=== PATIENT | female | born 1965 | race Caucasian/White ===

== ENCOUNTER 2024-10-12 16:28 | Emergency (ER) | payer OTHER, SELFPAY ==
--- OUTSIDE RECORDS SUMMARY | 2024-09-28 15:30 | XMS_ITS | Encounter Summary ---
Author Organization [facility] Address [address] [place] [address] Care Team Providers Care Foster Care Case Manager Name Role Phone Adonis Salvador Primary Care Provider [phone] Reason for Visit * Rehabilitation - Outpatient (Routine) - Authorized Specialty Diagnoses / Procedures Referred By Contac t Referred To Contact Physical Therapy Diagnoses Closed fracture of distal end of right fibula with routine healing, unspecified fracture morphology, subsequent encounter Procedures [place] OFFICE/OUTPATIENT NEW HIGH MDM 60 MINUTES Kareem Mcduffie PA Phone: tel: fax: Shanice Howell, PT [address] [facility] [address] [place] [address] Phone: tel: fax: Referral ID Status Reason Start Date Expiration Date Visits Requested Visits Authorized [id number] Authorized Consult and Treat 08/19/2024 03/09/2025 99 99 Encounter Details Date Type Department Care Team (Late st Contact Info) Description 09/28/2024 3:30 PM EDT Treatment [facility] [place] [facility] [address] [facility] [address] [place] [phone] Patricia Arreola, PT [address] [place] [address] Closed fracture of distal end of right fibula with routine healing, unspecified fracture morphology, subsequent encounter (Primary Dx) Social History Tobacco Use Types Packs/Day Years Used Date Smoking Tobacco: Never Smokeless Tobacco: Never Alcohol Use Standard Drinks/Week Comments Yes 0 (1 standard drink = 0.6 oz pur e alcohol) Comments Unknown Sex and Gender Information Value Date Recorded Sex Assigned at Not on file Legal Sex Female 7:39 PM EDT Gender Identity Not on file Sexual Orientation Not on file documented as of this encounter Progress Notes * Patricia Arreola, PT - 09/28/2024 3:30 PM EDT Images from the original note were not included. Physical Therapy Physical Therapy Treatment Visit Patient Name: Wendy Hicks Today's Date: 09/28/24 Diagnosis: Closed fracture of distal end of right fibula with routine healing DOI: 06/26/24, 13 weeks post op on 09/25/24 Treatment has included NWB, then WB in boot. Boot removed 08/19/24. Visit number: 13, med nec, 10% co-insurance Supervised time: 40 min Total time: 55 min Precautions: progress as tolerated Subjective: Pain: lower pain levels right lateral ankle for 1 week. On feet a lot at work today, fatigued. Strength is slowly improving. Cannot do single heel raise yet, but strength is improving. Unable to descend steps with reciprocalpattern. Overall progress: now painfree full ROM, Strength is improving. Objective: Palpation: no longer sore over right ATF ligament or fracture site. Atrophy right calf. AROM: updated 09/15/24 DF: 10 deg PF: 45 deg Inv: 33 deg Ev: 25 deg Strength 4/5 ant tib, post tib. 3.5/5 right peroneals, gastroc-soleus Gait: decreased toe off right. Single leg stance: 3 sec Treatment: Therapeutic Exercise: Nestor/flex per grid x 30' supervised, no bike today. Manual therapy: fibula, soft tissue mobes x 10 min. No pain with end-range eversion now Modalities: Estim/ice to Right ankle post RX x15' Assessment: Pt has received 13 treatments of PT from 08/23/24 to today. PT has consisted of therapeutic exercises, manual therapy and ice/e-stim. Pain level is steadily decreasing as strength improves. Decreased pain after exercises today. Improving agility without pain. Goals updated 09/15/24 No pain with isometric/resisted exercises right ankle. Goal not met Walk with equal step time and length, no increase in pain. Goal not met 4/5 or better strength right LE . Goal not met. Improve AROM right ankle to equal left. Goal met Ascend/descend steps with reciprocal pattern without increase in pain. Goal not met. 0-2/10 pain with pt able to resume PLOF. Goal not met. Plan: PT 2x/week through September 2024. documented in this encounter Plan of Treatment Upcoming Encounters Date Type Department Care Team (Late st Contact Info) Description 10/15/2024 5:15 PM EDT Ancillary Procedure [facility] [address] [place] [phone] 10/22/2024 8:15 AM EDT Office Visit [facility] [address] [place] [address] Kareem Mcduffie PA [address] [place] [address] documented as of this encounter Visit Diagnoses Diagnosis Closed fracture of distal end of right fibula with routine healing, unspecified fracture morphology, subsequent encounter- Primary documented in this encounter Care Teams Foster Care Case Manager Relationship Specialty Start Date End Date Adonis Salvador DO [address] [address] PCP - General Family Medicine 07/16/22 documented as of this encounter
--- OUTSIDE RECORDS SUMMARY | 2024-09-30 16:00 | XMS_ITS | Encounter Summary ---
Author Organization [facility] Address [address] [place] [address] Care Team Providers Care Hire Car Driver Name Role Phone Adonis Salvador Primary Care Provider [phone] Reason for Visit * Rehabilitation - Outpatient (Routine) - Authorized Specialty Diagnoses / Procedures Referred By Contac t Referred To Contact Physical Therapy Diagnoses Closed fracture of distal end of right fibula with routine healing, unspecified fracture morphology, subsequent encounter Procedures [place] OFFICE/OUTPATIENT NEW HIGH MDM 60 MINUTES Kareem Mcduffie PA Phone: tel: fax: Shanice Howell, PT [address] [place] [address] [place] [address] Phone: tel: fax: Referral ID Status Reason Start Date Expiration Date Visits Requested Visits Authorized [id number] Authorized Consult and Treat 08/19/2024 03/09/2025 99 99 Encounter Details Date Type Department Care Team (Late st Contact Info) Description 09/30/2024 4:00 PM EDT Treatment [facility] [place] [facility] [address] [place] [address] [place] [address] Jolene Delcid PTA Closed fracture of distal end of right [...] as of this encounter Progress Notes * Jolene Delcid, EPIC DIRECTOR - 09/30/2024 4:00 PM EDT Physical Therapy Physical Therapy Treatment Visit Patient Name: Wendy Hicks Today's Date: 09/28/24 Diagnosis: Closed fracture of distal end of right fibula with routine healing DOI: 06/26/24, 13 weeks post op on 09/25/24 Treatment has included NWB, then WB in boot. Boot removed 08/19/24. Visit number: 14, med nec, 10% co-insurance Supervised time: 40 min Total time: 68 min Precautions: progress as tolerated Subjective: Pain: minimal soreness since coming from work, level not rated. Overall progress: Mild soreness from exercise progressions last session. Patient pleased with overall progress. Objective: Palpation: no longer sore over right ATF ligament or fracture site. Atrophy right calf. AROM: updated 09/15/24 DF: 10 deg PF: 45 deg Inv: 33 deg Ev: 25 deg Strength 4/5 ant tib, post tib. 3.5/5 right peroneals, gastroc-soleus Gait: decreased toe off right. Single leg stance: 3 sec Treatment: Therapeutic Exercise: Nestor/flex per grid x 30' supervised, x 13' unsupervised Manual therapy: fibula, soft tissue mobes x 10 min. Modalities: Estim/ice to Right ankle post RX x15' Assessment: No pain with resistance ankle ther ex. Most challenged with single leg stance activity which required support from contralateral LE or hands on bar. Goals updated 09/15/24 No pain with isometric/resisted exercises right ankle. Goal met Walk with equal step time and length, no increase in pain. Goal not met 4/5 or better strength right LE . Goal not met. Improve AROM right ankle to equal left. Goal met Ascend/descend steps with reciprocal pattern without increase in pain. Goal not met. 0-2/10 pain with pt able to resume PLOF. Goal not met. Plan: PT 2x/week through September 2024. Cosigned by Karen Monzon, PT at 10/05/2024 1:57 PM EDT documented in this encounter Plan of Treatment Upcoming Encounters Date Type Department Care Team (Late st Contact Info) Description 10/15/2024 5:15 PM EDT Ancillary Procedure [facility] [address] [place] [address] 10/22/2024 8:15 AM EDT Office Visit [facility] [address] [place] [address] Kareem Mcduffie PA [address] [place] [address] documented as of this encounter Visit Diagnoses Diagnosis Closed fracture of distal end of right fibula with routine healing, unspecified fracture morphology, subsequent encounter- Primary documented in this encounter Care Teams Hire Car Driver Relationship Specialty Start Date End Date Adonis Salvador DO [address] [facility] [place] [address] PCP - General Family Medicine 07/16/22 documented as of this encounter
--- OUTSIDE RECORDS SUMMARY | 2024-10-07 14:45 | XMS_ITS | Encounter Summary ---
Author Organization [facility] Address [address] [place] [address] Care Team Providers Care Personal Assistant Name Role Phone Adonis Salvador Primary Care Provider [phone] Reason for Referral * Imaging (Routine) - Authorized Specialty Diagnoses / Procedures Referred By Contac t Referred To Contact Radiology Diagnoses Acute right ankle pain Closed fracture of distal end of right fibula with routine healing, unspecified fracture morphology, subsequent encounter Procedures MR ankle right wo IV contrast Kareem Mcduffie PA [address] [place] [address] Phone: tel: fax: [facility] [address] [place] [address] Phone: tel: fax: Referral ID Status Reason Start Date Expiration Date V isits Requested Visits Authorized [id number] Authorized 10/11/2024 04/09/2025 1 1 Reason for Visit * Reason Comments Fracture Encounter Details Date Type Department Care Team (Late st Contact Info) Description 10/07/2024 2:45 PM EDT Office Visit [facility] [address] [place] [phone] Kareem Mcduffie PA [address] [place] [address] Acute right ankle pain (Primary Dx); Closed fracture of distal end of right fibula with routine healing, unspecified fracture morphology, subsequent encounter Social History Tobacco Use Types Packs/Day Years [...] as of this encounter Progress Notes * GINGER Edmond - 10/07/2024 2:45 PM EDT Images from the original note were not included. Orthopedic Office note: NAME: Wendy Hicks : 1965 (EST PT) - RECHECK (R) ANKLE FX 06/26/24 (3 MONTHS, 2 WKS, 5 DAYS) ; S/P MDP 09/16/24 XRAY 08/19/24 IN EPIC XRAY 07/21/24 IN EPIC XRAY 06/28/24 IN EPIC NO MRI MDP 09/16/24 S/P PT @[facility] [place] CONTINUES HEP. S/P MDP - SOME RELIEF WITH SWELLING. ADMITS CONSTANT DISCOMFORT TO TOES WITH AMBULATION / WB. GOOD ROM. STRENGTH IMPROVING. SOME SWELLING TO ANKLE. DENIES STIFFNESS. DENIES WAKING HS. OCCASIONAL SENSATION OF NEEDING TO CRACK 1ST TOE WITH AMBULATION. DENIES N/T. ADMITS ELEVATION. DENIES ICING / HEATING. NO PAIN MEDS / TOPICALS. MICHAEL: 06/26/24 - FELL WHEN WALKING / TWISTED ANKLE Physical Exam General Appearance: Normal. Respiratory: No acute distress. Musculoskeletal: Gait: Patient walks well at the bedside without evidence of a limp. Right ankle: Mild swelling on the lateral aspect, no evidence of bruising, pain localized on deep palpation over the ATFL, compartments are soft, no pain with syndesmotic compression of the tib-fib, proximal fibula, knee, full ankle dorsiflexion and plantar flexion, ankle inversion and eversion without difficulty, posterior tibial pulse 2+ with capillary refill less than 2 seconds, no pain on palpation of the medial ankle, calcaneus, or midfoot, able to single leg heel rise with mild soreness, able to double leg heel rise without pain or discomfort. Skin: Warm and dry, no rash. Neurological: Normal. Foot/Ankle Musculoskeletal Exam No orders of the defined types were placed in this encounter. Procedures Results ICD-10-CM 1. Acute right ankle pain M25.571 2. Closed fracture of distal end of right fibula with routine healing, unspecified fracture morphology, subsequent encounter S82.831D 3. Acute traumatic internal derangement of right ankle, initial encounter S93.04XA Assessment & Plan Right distal fibula fracture Approximately 3 months post-injury, there is persistent discomfort with certain activities. No painis reported while walking, but pain occurs in the ball area of the foot with overuse. Gait mechanics and continued tenderness were discussed. The potential for a full thickness tear cannot be ruled out. Ankle anterior drawer and talar tilt tests are negative, showing no significant pain or laxity compared to the contralateral ankle. She can walk most of the day without ankle pain but experiences occasional discomfort depending on certain movements and activities. Impingement is possible, considering prior referral to physical therapy and compliance with home exercises, which appears adequate. Diagnostic plan: An MRI will be conducted for further evaluation due to lack of progress with conservative measures and persistent symptoms. Referral to a foot and ankle specialist will be consideredbased on MRI results. Follow-up: Next scheduled visit to be determined based on MRI results. Questions answered in laymen terms at the bedside. The diagnosis, home exercise plan and any ongoing restrictions/ recommendations reviewed. If unable to be reached in office, I recommend evaluation at nearest Emergency Room if any symptoms worsened or new symptoms develop for requiring urgent evaluation. Visit was preformed using [employer] Co-airplane pilot helper speech recognition. documented in this encounter Plan of Treatment Upcoming Encounters Date Type Department Care Team (Late st Contact Info) Description 10/15/2024 5:15 PM EDT Ancillary Procedure [facility] [place] [facility] [address] [place] [address] 10/22/2024 8:15 AM EDT Office Visit [facility] [address] Kareem Mcduffie PA [address] [place] [address] Scheduled Orders Name Type Priority Associated Diagnoses Orde r Schedule MR ankle right wo IV contrast Imaging Routine Acute right ankle pain Closed fracture of distal end of right fibula with routine healing, unspecified fracture morphology, subsequent encounter Expected: 10/07/2024 (Approximate), Expires: 10/07/2025 documented as of this encounter Visit Diagnoses Diagnosis Acute right ankle pain- Primary Closed fracture of distal end of right fibula with routine healing, unspecified fracture morphology, subsequent encounter documented in this encounter Care Teams Personal Assistant Relationship Specialty Start Date End Date Adonis Salvador DO [address] [address] PCP - General Family Medicine 07/16/22 documented as of this encounter
--- OUTSIDE RECORDS SUMMARY | 2024-10-12 15:30 | XMS_ITS | Encounter Summary ---
Author Organization [facility] Address [address] [place] [address] Care Team Providers Care Strainer Mill Operator Name Role Phone Adonis Salvador Primary Care Provider [phone] Encounter Details Date Type Department Care Team (Late st Contact Info) Description 10/12/2024 3:30 PM EDT [facility] [address] [facility] [address] [place] [address] Brandie Suarez, PORCELAIN ENAMELING SUPERVISOR [address] [place] [address] Right lower quadrant abdominal pain (Primary Dx); Acute right flank pain Social History Tobacco Use Types Packs/Day Years [...] on file documented as of this encounter Last Filed Vital Signs Vital Sign Reading Time Taken Comments Blood Pressure 132/92 10/12/2024 3:33 PM EDT Pulse 80 10/12/2024 3:33 PM EDT Temperature 36.7 C (98 F) 10/12/2024 3:33 PM EDT Respiratory Rate 18 10/12/2024 3:33 PM EDT Oxygen Saturation 99% 10/12/2024 3:33 PM EDT Inhaled Oxygen Concentration - - Weight 87.5 kg (193 lb) 10/12/2024 3:33 PM EDT Height - - Body Mass Index 34.19 08/24/2019 12:00 PM EDT documented in this encounter Plan of Treatment Upcoming Encounters Date Type Department Care Team (Late st Contact Info) Description 10/15/2024 5:15 PM EDT Ancillary Procedure [facility] [address] [place] [address] 10/22/2024 8:15 AM EDT Office Visit [facility] [address] [place] [address] Kareem Mcduffie PA [address] [place] [address] documented as of this encounter Procedures Procedure Name Priority Date/Time Associated Diagnosis Comments URINALYSIS ANALYZER TEST Routine 10/12/2024 4:11 PM EDT Right lower quadrant abdominal pain documented in this encounter Results * (ABNORMAL) URINALYSIS ANALYZER TEST (10/12/2024 4:11 PM EDT) LEUKOCYTES negative Negative NITRITES negative Negative UROBILINOGEN negative 0.2 - 1.0 PROTEIN negative Negative PH 6.0 5.0 - 6.0 BLOOD +- Negative SPECIFIC GRAVITY 1.005 1.001 - 1.035 KETONES negative Negative BILIRUBIN negative Negative GLUCOSE negative Negative Urine 10/12/2024 4:1 1 PM EDT Brandie Suarez PORCELAIN ENAMELING SUPERVISOR POINT OF CARE TEST ENTER/CHARLES T ORDERABLES Final Result documented in this encounter Visit Diagnoses Diagnosis Right lower quadrant abdominal pain- Primary Acute right flank pain documented in this encounter Care Teams Strainer Mill Operator Relationship Specialty Start Date End Date Adonis Salvador DO [address] [place] [address] PCP - General Family Medicine 07/16/22 documented as of this encounter
[2024-10-12 16:35] VITALS: BP 131/87; PULSE 72; TEMP 36.7; O2SAT 99; BMI 34.4
--- OUTSIDE RECORDS SUMMARY | 2024-10-12 16:38 | XMS_ITS | Encounter Summary ---
Author Organization [facility] Address [address] [place] [address] Care Team Providers Care Brick And Block Mason Name Role Phone Adonis Salvador DO Primary Care Provider [phone] Encounter Details Date Type Department Care Team (Late st Contact Info) Description 06/28/2024 Results Follow-Up [facility] [address] [facility] [address] [place] [address] Maame Delgado, IMPREGNATOR HELPER [address] [facility] [address] [place] [address] Social History Tobacco Use Types Packs/Day Years Used Date Smoking Tobacco: Never Assessed Comments Unknown Sex and Gender Information Value Date Recorded Sex Assigned at Not on file Legal Sex Female 7:39 PM EDT Gender Identity Not on file Sexual Orientation Not on file documented as of this encounter Plan of Treatment Upcoming Encounters Date Type Department Care Team (Late st Contact Info) Description 10/15/2024 5:15 PM EDT Ancillary Procedure [facility] [address] [place] [address] 10/22/2024 8:15 AM EDT Office Visit [facility] [address] [place] [address] Kareem Mcduffie PA [address] [place] [address] documented as of this encounter Visit Diagnoses Not on filedocumented in this encounter Care Teams Brick And Block Mason Relationship Specialty Start Date End Date Adonis Salvador DO [address] [address] PCP - General Family Medicine 07/16/22 documented as of this encounter
--- OUTSIDE RECORDS SUMMARY | 2024-10-12 16:38 | XMS_ITS | Encounter Summary ---
Author Organization [facility] Address [address] [place] [address] Care Team Providers Care Sample Room Supervisor Name Role Phone Adonis Salvador DO Primary Care Provider [phone] Encounter Details Date Type Department Care Team (Late st Contact Info) Description 09/30/2024 Bamboo flowsheet [facility] [place] [facility] [address] [place] [address] Jolene Delcid, VALERIE Social History Tobacco Use Types Packs/Day Years [...] [facility] [address] [place] [address] 10/22/2024 8:15 AM EDT Office Visit [facility] [address] [place] [address] Kareem Mcduffie PA [address] [place] [address] documented as of this encounter Visit Diagnoses Not on filedocumented in this encounter Care Teams Sample Room Supervisor Relationship Specialty Start Date End Date Adonis Salvador DO [address] [facility] [address] [place] [phone] PCP - General Family Medicine 07/16/22 documented as of this encounter
--- OUTSIDE RECORDS SUMMARY | 2024-10-12 16:38 | XMS_ITS | Encounter Summary ---
Author Organization [facility] Address [address] [place] [address] Care Team Providers Care Valve Maker Name Role Phone Adonis Salvador DO Primary Care Provider [phone] Encounter Details Date Type Department Care Team (Latest Contact Info) Description 09/30/2024 Travel Social History Tobacco Use Types Packs/Day Years [...] Description 10/15/2024 5:15 PM EDT Ancillary Procedure [facility] [address] [place] [address] 10/22/2024 8:15 AM EDT Office Visit [facility] [address] [place] [address] Kareem Mcduffie PA [address] [place] [address] documented as of this encounter Visit Diagnoses Not on filedocumented in this encounter Care Teams Valve Maker Relationship Specialty Start Date End Date Adonis Salvador DO [address] [place] [place], [place] [phone] PCP - General Family Medicine 07/16/22 documented as of this encounter
--- OUTSIDE RECORDS SUMMARY | 2024-10-12 16:38 | XMS_ITS | Encounter Summary ---
Author Organization [facility] Address [address] [place] [address] Care Team Providers Care Manager Loan Name Role Phone Adonis Salvador DO Primary Care Provider [phone] Encounter Details Date Type Department Care Team (Latest Contact Info) Description 09/28/2024 Travel Social History Tobacco Use Types Packs/Day [...] [facility] [address] [place] [address] 10/22/2024 8:15 AM EDT Office Visit [facility] [address] [place] [address] Kareem Mcduffie PA [address] [place] [address] documented as of this encounter Visit Diagnoses Not on filedocumented in this encounter Care Teams Manager Loan Relationship Specialty Start Date End Date Adonis Salvador DO [address] [place], [place] [address] PCP - General Family Medicine 07/16/22 documented as of this encounter
--- OUTSIDE RECORDS SUMMARY | 2024-10-12 16:38 | XMS_ITS | Encounter Summary ---
Author Organization [facility] Address [address] [place] [address] Care Team Providers Care Coldfusion Name Role Phone Adonis Salvador DO Primary Care Provider [phone] Encounter Details Date Type Department Care Team (Late st Contact Info) Description 09/28/2024 Bamboo flowsheet [facility] [place] [facility] [address] [place] [address] Patricia Arreola, PT [address] [place] [address] Social History Tobacco Use Types Packs/Day Years [...] EDT Ancillary Procedure [facility] [place] [facility] [address] [place] [address] 10/22/2024 8:15 AM EDT Office Visit [facility] [address] [place] [address] Kareem Mcduffie, PA [address] [place] [address] documented as of this encounter Visit Diagnoses Not on filedocumented in this encounter Care Teams Coldfusion Relationship Specialty Start Date End Date Adonis Salvador DO [address] [facility] [address] [facility] [address] [place] [address] PCP - General Family Medicine 07/16/22 documented as of this encounter
--- OUTSIDE RECORDS SUMMARY | 2024-10-12 16:38 | XMS_ITS | Clinical Summary ---
Author Organization [facility] Healthcare Address [address] [place] [address] Care Team Providers Care Wheel Cleaner Name Role Phone Adonis Salvador Primary Care Provider Allergies No known active allergies Medications methylPREDNISol one (Medrol Dospak) 4 MG tabletsIndicati ons:Acute right ankle pain,Closed fracture of distal end of right fibula with routine healing, unspecified fracture morphology, subsequent encounter Follow schedule on package instructions 21 tablet Active Additional Information Patient not taking.Reported on 10/12/2024 Active Problems Problem Noted Date Diagnosed Date Closed fracture of distal en d of right fibula with routine healing 08/30/2024 Encounters Date Type Department Care Team Description 10/12/2024 3:30 PM EDT Office Visit [facility] [address] [place] [address] Brandie Suarez, OMAR Right lower quadrant abdominal pain (Primary Dx); Acute right flank pain 10/12/2024 Travel 10/07/2024 2:45 PM EDT [facility] [address] [place] [address] Kareem Mcduffie PA Acute right ankle pain (Primary Dx); Closed fracture of distal end of right fibula with routine healing, unspecified fracture morphology, subsequent encounter 10/07/2024 Bamboo flowsheet [facility] [address] [place] [address] Kareem Mcduffie PA 10/07/2024 Travel 09/30/2024 4:00 PM EDT Treatment [facility] [address] [place] [address] Jolene Delcid, SOCIAL ECONOMIST Closed fracture of distal end of right fibula with routine healing, unspecified fracture morphology, subsequent encounter (Primary Dx) 09/30/2024 Bamboo flowsheet [facility] [address] [place] [address] FarhanaJolene, SOCIAL ECONOMIST 09/30/2024 Travel 09/28/2024 3:30 PM EDT Treatment [facility] [address] [place] [address] Patricia Arreola, PT Closed fracture of distal end of right fibula with routine healing, unspecified fracture morphology, subsequent encounter (Primary Dx) 09/28/2024 Bamboo flowsheet [facility] [address] [place] [address] Patricia Arreola, PT 09/28/2024 Travel 09/27/2024 Travel 09/24/2024 3:00 PM EDT Treatment [facility] [address] [place] [address] Patricia Arreola, PT Closed fracture of distal end of right fibula with routine healing, unspecified fracture morphology, subsequent encounter (Primary Dx) 09/24/2024 Bamboo flowsheet [facility] [address] [place] [address] Patricia Arreola, PT 09/24/2024 Travel 09/22/2024 4:00 PM EDT Treatment [facility] [address] [place] [address] Patricia Arreola, PT Closed fracture of distal end of right fibula with routine healing, unspecified fracture morphology, subsequent encounter (Primary Dx) 09/22/2024 Bamboo flowsheet [facility] [address] [place] [address] Patricia Arreola, PT 09/22/2024 Travel 09/16/2024 2:45 PM EDT Office Visit [facility] [address] [place] [address] Kareem Mcduffie, PA Closed fracture of distal end of right fibula with routine healing, unspecified fracture morphology, subsequent encounter (Primary Dx); Acute right ankle pain 09/16/2024 Bamboo flowsheet [facility] [address] [place] [address] Kareem Mcduffie, PA 09/16/2024 Travel 09/15/2024 3:30 PM EDT Treatment [facility] [address] [place] [address] Patricia Arreola, PT Closed fracture of distal end of right fibula with routine healing, unspecified fracture morphology, subsequent encounter (Primary Dx) 09/15/2024 Travel 09/14/2024 3:30 PM EDT Treatment [facility] [address] [place] [address] Depoy, Klaudia, SOCIAL ECONOMIST Closed fracture of distal end of right fibula with routine healing, unspecified fracture morphology, subsequent encounter (Primary Dx) 09/14/2024 Bamboo flowsheet [facility] [address] [place] [address] Depoy, Klaudia, SOCIAL ECONOMIST 09/14/2024 Travel 09/13/2024 Travel 09/07/2024 4:00 PM EDT Treatment [facility] [address] [place] [address] Depoy, Klaudia, SOCIAL ECONOMIST Closed fracture of distal end of right fibula with routine healing, unspecified fracture morphology, subsequent encounter (Primary Dx) 09/07/2024 Travel 09/06/2024 3:30 PM EDT Treatment [facility] [address] [place] [address] Jolene Delcid, SOCIAL ECONOMIST Closed fracture of distal end of right fibula with routine healing, unspecified fracture morphology, subsequent encounter (Primary Dx) 09/06/2024 Bamboo flowsheet [facility] [address] [place] [address] Jolene Delcid, SOCIAL ECONOMIST 09/06/2024 Travel 09/04/2024 Travel 09/03/2024 8:30 AM EDT Treatment [facility] [address] [place] [address] Patricia Arreola, PT Closed fracture of distal end of right fibula with routine healing, unspecified fracture morphology, subsequent encounter (Primary Dx) 09/03/2024 Bamboo ComAbilityheet [facility] [address] [place] [address] Patricia Arreola, PT 09/03/2024 Travel 2024 Travel 08/31/2024 10:30 AM EDT Treatment [facility] [address] [place] [address] Patricia Arreola, PT Closed fracture of distal end of right fibula with routine healing, unspecified fracture morphology, subsequent encounter (Primary Dx) 08/31/2024 Bamboo flowsheet [facility] [address] [place] [address] Patricia Arreola, PT 08/31/2024 Travel 08/30/2024 10:00 AM EDT Treatment [facility] [address] [place] [address] Jolene Delcid, SOCIAL ECONOMIST Closed fracture of distal end of right fibula with routine healing, unspecified fracture morphology, subsequent encounter (Primary Dx) 08/30/2024 Bamboo flowsheet [facility] [address] [place] [address] Jolene Delcid, SOCIAL ECONOMIST 08/30/2024 Travel 08/29/2024 Travel 08/27/2024 11:30 AM EDT Treatment [facility] [address] [place] [address] Patricia Arreola, PT Closed fracture of distal end of right fibula with routine healing, unspecified fracture morphology, subsequent encounter (Primary Dx) 08/27/2024 Bamboo flowsheet [facility] [address] [place] [address] Patricia Arreola, PT 08/27/2024 Travel 08/26/2024 Travel 08/25/2024 1:00 PM EDT Treatment [facility] [address] [place] [address] Ry Linton, ATC Closed fracture of distal end of right fibula with routine healing, unspecified fracture morphology, subsequent encounter (Primary Dx) 08/25/2024 Bamboo flowsheet [facility] [address] [place] [address] Ry Linton, ATC 08/25/2024 Travel 08/24/2024 Travel 08/23/2024 10:30 AM EDT Evaluation [facility] [address] [place] [address] Patricia Arreola, PT Closed fracture of distal end of right fibula with routine healing, unspecified fracture morphology, subsequent encounter 08/23/2024 Bamboo flowsheet [facility] [address] [place] [address] Patricia Arreola, PT 08/23/2024 Travel 08/20/2024 Travel 08/19/2024 9:15 AM EDT Office Visit [facility] [address] [place] [address] Kareem Mcduffie PA Acute right ankle pain; Closed fracture of distal end of right fibula with routine healing, unspecified fracture morphology, subsequent encounter 08/19/2024 9:10 AM EDT Ancillary Procedure [facility] [address] [place] [address] 08/19/2024 Bamboo flowsheet [facility] [address] [place] [address] Kareem Mcduffie PA 08/19/2024 Travel 08/12/2024 Travel 07/21/2024 1:15 PM EDT Ancillary Procedure [facility] [address] [place] [address] 07/21/2024 1:15 PM EDT Office Visit [facility] [address] [place] [address] Van Talavera, OMAR Closed fracture of distal end of right fibula with routine healing, unspecified fracture morphology, subsequent encounter 07/21/2024 Bamboo flowsheet [facility] [address] [place] [address] Van Talavera NP 07/21/2024 Travel 07/14/2024 Travel from Last 3 Months Social History Tobacco Use Types Packs/Day Years Used Date Smoking Tobacco: Never Smokeless Tobacco: Never Tobacco Cessation:Counseling Given: Not Answered Alcohol Use Standard Drinks/Week Comments Yes 0 (1 standard drink = 0.6 oz pur e alcohol) Comments Unknown Sex and Gender Information Value Date Recorded Sex Assigned at Not on file Legal Sex Female 7:39 PM EDT Gender Identity Not on file Sexual Orientation Not on file Last Filed Vital Signs Vital Sign Reading Time Taken Comments Blood Pressure 132/92 10/12/2024 3:33 PM EDT Pulse 80 10/12/2024 3:33 PM EDT Temperature 36.7 C (98 F) 10/12/2024 3:33 PM EDT Respiratory Rate 18 10/12/2024 3:33 PM EDT Oxygen Saturation 99% 10/12/2024 3:33 PM EDT Inhaled Oxygen Concentration - - Weight 87.5 kg (193 lb) 10/12/2024 3:33 PM EDT Height 160 cm (5' 3 ) 08/24/2019 12:00 PM EDT Body Mass Index 34.19 08/24/2019 12:00 PM EDT Plan of Treatment Upcoming Encounters Date Type Department Care Team (Late st Contact Info) Description 10/15/2024 5:15 PM EDT Ancillary Procedure [facility] [address] [place] [address] 10/22/2024 8:15 AM EDT Office Visit [facility] [address] [place] [address] Kareem Mcduffie PA [address] [place] [address] Health Maintenance Due Date Last Done Comments CT Colonography 1965 FIT-DNA 1965 FIT 1965 Sigmoidoscopy 1965 Pap Smear 09/01/1984 Cervical Cancer Screening 09/01/1993 HPV/Cotest 09/01/1993 FOBT 06/18/2019 06/17/2018 Mammogram 09/05/2020 09/06/2019, 08/09, 08/17/2018, Additional history exists Influenza Vaccine (#1) 2024 Colonoscopy 06/30/2030 06/30/2020 Colorectal Cancer Screening 06/30/2030 Procedures Procedure Name Priority Date/Time Associated Diagnosis Comments URINALYSIS ANALYZER TEST Routine 10/12/2024 4:11 PM EDT Right lower quadrant abdominal pain XR ANKLE 3+ VIEWS RIGHT Routine 08/20/19 9:08 AM EDT Acute right ankle pain XR ANKLE 3+ VIEWS RIGHT Routine 07/22/19 1:14 PM EDT Closed fracture of distal end of right fibula with routine healing, unspecified fracture morphology, subsequent encounter COLONOSCOPY Routine 06/30/2020 12:00 PM EDT BI MAMMOGRAM SCREENING BILATERAL Routine 09/06/2019 Encounter for screening for malignant neoplasm of cervix Encounter for screening mammogram for malignant neoplasm of breast Encounter for screening for malignant neoplasm of colon Asymptomatic menopausal state Encounter for gynecological examination (general) (routine) without abnormal findings Other specified disorders of bone density and structure, multiple sites FECAL GLOBIN BY IMMUNOCHEMISTRY (80100) Routine 06/17/2018 from Last 3 Months or Most Recently Relevant to Health Maintenance Results * (ABNORMAL) URINALYSIS ANALYZER TEST (10/12/2024 4:11 PM EDT) LEUKOCYTES negative Negative NITRITES negative Negative UROBILINOGEN negative 0.2 - 1.0 PROTEIN negative Negative PH 6.0 5.0 - 6.0 BLOOD +- Negative SPECIFIC GRAVITY 1.005 1.001 - 1.035 KETONES negative Negative BILIRUBIN negative Negative GLUCOSE negative Negative Urine 10/12/2024 4:11 PM EDT Brandie Suarez NP POINT OF CARE TEST ENTER/CHARLES T ORDERABLES Final Result * XR ankle 3+ views right (08/19/2024 9:08 AM EDT) Only the most recent of2 resultswithin the time period is included. Anatomical Region Laterality Modality Lower Extremities, Ankle Right Radiogr aphic Imaging Narrative 08/19/2024 10:13 AM EDT Imaging Result: AP Lateral and Obligue right ankle: No new fracture or dislocation Minimal soft tissue swelling lateral malleolous. Increased callus to distal fibula fx with evidence of healing, Ankle mortise preserved Impression: Healing distal fibula fracture in unchanged position and alignment. Kareem MILES IMG XR PROCEDURES Final Resul t * Colonoscopy (06/30/2020 12:00 PM EDT) Anatomical Region Laterality Modality Endoscopy 06/30/2020 12:0 0 PM EDT Narrative 06/30/2020 12:00 PM EDT PERFORMED AT [facility] LOCATION:[id number] [facility] Procedure Note CONVERSION, GENERIC - 07/24/2022 PERFORMED AT [facility] LOCATION:[id number] [facility] Adonis Salvador DO ENDOSCOPY PROCEDURE ORDERABLE S Final Result * Bilateral screening mammogram (09/06/2019) Anatomical Region Laterality Modality Breast Bilateral Mammography Impressions 09/06/2019 12:00 AM EDT No mammographic evidence of malignancy. Routine follow-up recommended in one year. RESULT CODE: 2 Benign Findings(s) DENSITY CODE: 2 (approximately 25-50% glandular) FOLLOW UP: 1YR THE FALSE-NEGATIVE RATE OF MAMMOGRAPHY IS APPROXIMATELY 10%. IMAGING OF A PALPABLE ABNORMALITY MUST BE BASED ON CLINICAL GROUNDS. PATIENT WAS ENTERED INTO A REMINDER SYSTEM WITH A TARGET DUE DATE FOR THE NEXT MAMMOGRAM. Impression dictated by: Fantasma Rudd M.D.09/06/2019 10:44 AM Dictation Location: [facility] Transcribed By: PWS 09/06/19 1044 Dictated By: Fantasma Rudd DO 09/06/19 1042 Signed By: <Electronically signed by Fantasma Rudd DO in OV> 09/06/19 1044 Narrative 09/06/2019 12:00 AM EDT PERFORMED AT [facility] LOCATION:[address] [place] [address] Mammography Report Signed Patient: Wendy Hicks MR#: [id number] : 1965 Acct:[id number] Age/Sex: 54 / F ADM Date: 09/04/19 Loc: [place] Room: Type: [facility] Attending Dr: Rasta Loving MD Ordering Provider: MELISSA Almaguer Date of Service: 09/04/19 MM/MM screening mammo BI w/CAD: screening;Encounter for screening mammogram for malignant ne Copies to: NO FAMILY PHYSICIAN MELISSA Almaguer Bilateral Screening Full Field digital mammogram with 3-D imaging. Full field digital CC and MLO imaging performed. CAD utilized. COMPARISON: 08/12/17 HISTORY:Screening FINDINGS: Scattered fibroglandular densities of the breast parenchyma identified. No developing architectural distortion, developing focal breast asymmetry or developing malignant calcifications identified. Stable benign nodularity identified. Several scattered benign calcifications are present. MM/MM screening mammo BI w/CAD Procedure Note CONVERSION, GENERIC - 09/13/2022 PERFORMED AT [facility] LOCATION:[address] [place] [address] [place] [address] Mammography Report Signed Patient: Doni Hicks#: [id number] : 1965Acct:[id number] Age/Sex: 54 / FADM Date: 09/04/19 Loc: [place] Room:Type: [facility] Attending Dr: Rasta Loving MD Ordering Provider: MELISSA Almaguer Date of Service: 09/04/19 MM/MM screening mammo BI w/CAD:screening;Encounter for screening mammogram for malignant ne Copies to: NO FAMILY PHYSICIAN MELISSA Almaguer Bilateral Screening Full Field digital mammogram with 3-D imaging. Full field digital CC and MLO imaging performed. CAD utilized. COMPARISON: 08/12/17 HISTORY:Screening FINDINGS: Scattered fibroglandular densities of the breast parenchymaidentified. No developing architectural distortion, developing focal breast asymmetry or developingmalignant calcifications identified. Stable benign nodularity identified. Several scattered benigncalcifications are present. MM/MM screening mammo BI w/CAD IMPRESSION: No mammographic evidence of malignancy. Routine follow-up recommended inone year. RESULT CODE: 2 Benign Findings(s) DENSITY CODE: 2 (approximately 25-50% glandular) FOLLOW UP: 1YR THE FALSE-NEGATIVE RATE OF MAMMOGRAPHY IS APPROXIMATELY 10%. IMAGING OF A PALPABLE ABNORMALITY MUST BE BASED ON CLINICAL GROUNDS. PATIENT WAS ENTERED INTO A REMINDER SYSTEM WITH A TARGET DUE DATE FOR THENEXT MAMMOGRAM. Impression dictated by: Fantasma Rudd M.D.09/06/2019 10:44 AM Dictation Location: [id number] Transcribed By: LILIAN 09/06/19 1044 Dictated By: Fantasma Rudd DO 09/06/19 1042 Signed By: <Electronically signed by Fantasma Rudd DO in OV> 09/06/19 1044 Rasta Loving MD IMG BI PROCEDURES Final Result * FECAL GLOBIN BY IMMUNOCHEMISTRY ([id number]) (06/17/2018) FECAL GLOBIN BY IMMUNOCHEMISTRY SEE COMMENT [facility] Comment: FECAL GLOBIN BY IMMUNOCHEMISTRY MICRO NUMBER: [id number] TEST STATUS: FINAL SPECIMEN SOURCE: STOOL SPECIMEN QUALITY: INADEQUATE RESULT: Test not performed. No specimen received. 06/17/2018 Rasta Loving MD [facility] Final Result [facility] from Last 3 Months or Most Recently Relevant to Health Maintenance Insurance [employer] Care Teams Wheel Cleaner Relationship Specialty Start Date End Date Adonis Salvador DO [address] [address] PCP - General Family Medicine 07/16/22
--- OUTSIDE RECORDS SUMMARY | 2024-10-12 16:38 | XMS_ITS | Encounter Summary ---
Author Organization [facility] Address [address] [place] [address] Care Team Providers Care Insurance Defense Paralegal Name Role Phone Adonis Salvador DO Primary Care Provider [phone] Encounter Details Date Type Department Care Team (Latest Contact Info) Description 10/07/2024 Travel Social History Tobacco Use Types Packs/Day [...] [facility] [address] [place] [address] 10/22/2024 8:15 AM EDT Office Visit [facility] [address] [place] [address] Kareem Mcduffie PA [address] [place] [address] documented as of this encounter Visit Diagnoses Not on filedocumented in this encounter Care Teams Insurance Defense Paralegal Relationship Specialty Start Date End Date Adonis Salvador DO [address] [place], [place] [id number] PCP - General Family Medicine 07/16/22 documented as of this encounter
--- OUTSIDE RECORDS SUMMARY | 2024-10-12 16:38 | XMS_ITS | Encounter Summary ---
Author Organization [facility] Address [address] [place] [address] Care Team Providers Care Piecer Up Name Role Phone Adonis Salvador DO Primary Care Provider [phone] Encounter Details Date Type Department Care Team (Latest Contact Info) Description 10/12/2024 Travel Social History Tobacco Use Types Packs/Day [...] [facility] [address] [place] [place] [address] 10/22/2024 8:15 AM EDT Office Visit [facility] [address] [place] [address] Kareem Mcduffie PA [address] [place] [address] documented as of this encounter Visit Diagnoses Not on filedocumented in this encounter Care Teams Piecer Up Relationship Specialty Start Date End Date Adonis Salvador DO [address] [place], [place] [id number] PCP - General Family Medicine 07/16/22 documented as of this encounter
--- OUTSIDE RECORDS SUMMARY | 2024-10-12 16:38 | XMS_ITS | Encounter Summary ---
Author Organization [facility] Address [address] [place] [place] [address] Care Team Providers Care Heating Repair Technician Name Role Phone Adonis Salvador DO Primary Care Provider [phone] Encounter Details Date Type Department Care Team (Late st Contact Info) Description 10/07/2024 Bamboo flowsheet [facility] [address] [place] [address] Kareem Mcduffie, PA [address] [place] [address] Social History Tobacco Use Types Packs/Day Years [...] Ancillary Procedure [facility] [address] [place] [address] 10/22/2024 8:15 AM EDT Office Visit [facility] [address] [place] [address] Kareem Mcduffie PA [address] [place] [address] documented as of this encounter Visit Diagnoses Not on filedocumented in this encounter Care Teams Heating Repair Technician Relationship Specialty Start Date End Date Adonis Salvador DO [address] [place] [address] PCP - General Family Medicine 07/16/22 documented as of this encounter
--- NOTE | 2024-10-12 17:07 | CT_ITS ---
The [address] [address] Patient Name: PANDA PERKINS MRN: [id number] date: 1965 Sex: F Assigned Patient Location: ER Current Patient Location: ER Accession/Order Number: [id number] Exam Date: 10/12/2024 17:21 Report Date: 10/12/2024 17:26 At the request of: LYNN MILES Procedure: CT abdomen pelvis wo con CT ABDOMEN AND PELVIS WITHOUT INTRAVENOUS CONTRAST: CLINICAL HISTORY: right flank and RLQ pain COMPARISON: None TECHNIQUE: Spiral images were obtained through the abdomen and pelvis without intravenous contrast. This CT exam was performed using one or more following dose reduction techniques: Automated exposure control, adjustment of the mA and/or kV according to patient size, or use of iterative reconstruction technique. FINDINGS: Lung Bases: [Hypoventilatory change.] Organs:Liver, gallbladder, spleen, adrenals, and pancreas are unremarkable. Suspect left-sided peripelvic cysts. No definite hydronephrosis. No nephrolithiasis or definite ureterolithiasis.[ GI: Mild to moderate retained stool throughout the colon. No evidence of bowel obstruction. Appendix unremarkable.[ Pelvis:[Bladder and uterus unremarkable. No adnexal mass.] Peritoneum/Retroperitoneum:No free air or free fluid. No suspicious adenopathy.[Mild scattered plaque involving the iliac vessels. Abd wall/Bones:Multilevel degenerative changes involving lumbar spine.[ CT/CT abdomen pelvis wo con IMPRESSION: Negative acute inflammatory process or bowel obstruction. Negative for nephrolithiasis or obstructive uropathy. Impression dictated by: Rd Morales M.D. 10/12/2024 5:26 PM Dictation Location: [email or web address] Electronically authenticated by: [id number] Y Date: 10/12/2024 17:26
[2024-10-12 17:20] LABS: Glucose Urine UA NEGATIVE (NEGATIVE)
[2024-10-12 17:33] LABS: Cast Seen? NONE SEEN #/LPF (NONE SEEN); Crystals Seen? None Seen #/HPF (None Seen); Urine Culture Indicated YES-FRMC
--- NOTE | 2024-10-12 18:40 | ED.BACK1 ---
HPI HPI - Back Pain/Injury General Chief Complaint: Back Pain/Injury Stated Complaint: BACK PAIN Time Seen by Provider: 10/12/24 16:35 Source: patient Mode of arrival: walk-in History of Present Illness HPI Narrative: Patient presents to the ED with a complaint of right-sided back pain. She went to the urgent care and was seen told she had blood in her urine and she needed to come in for a CAT scan to make sure she does not have a kidney stone. She states she has had back pain for 2 days she did bend over and felt a pull however none of her home treatments have been sufficient. Pain or shortness of breath no numbness or tingling no lightheadedness or dizzy. MD elicited complaint: Reports back pain Pertinent past history: Denies kidney stones, back surgery, neurological deficit, arthritis, cancer, IV drug use or incontinence Onset (ago): day(s) Timing: Reports intermittent Severity: moderate Quality: Reports sharp Location: Reports lumbar spine and right lower back Radiation: Reports none Exacerbating factors: Reports movement Context: while lifting Associated symptoms: denies other symptoms Related Data Previous Rx's ?Medication ?Instructions ?Recorded diclofenac sodium 50 mg 50 mg PO BID PRN pain #20 tabs 10/12/24 tablet,delayed release methocarbamol 500 mg tablet 500 mg PO Q8H PRN spasms #20 tabs 10/12/24 Allergies Allergy/AdvReac Type Severity Reaction Status Date / Time No Known Drug Allergies Allergy Verified 10/12/24 16:35 PFSH PFSH Social History Little interest or pleasure in doing things: not at all Feeling down, depressed, or hopeless: not at all Exam Constitutional Vital Signs, click to edit/add: Last Vital Signs Temp 98.0 F 10/12/24 16:35 Pulse 54 L 10/12/24 19:09 Resp 16 10/12/24 16:35 BP 116/82 10/12/24 19:09 Pulse Ox 98 10/12/24 19:09 O2 Del Method Room Air 10/12/24 16:35 Documenting provider has reviewed patient's vital signs: yes Common normals: no apparent distress, average body habitus, oriented x3 and no limitations Chest Common normals: inspection of chest normal Respiratory Common normals: normal respiratory effort and clear to auscultation bilaterally Cardio Common normals: regular rate, regular rhythm and no murmurs Back & Pelvis Common normals: thoracic and lumbar spine normal to inspection and no thoracic nor lumbar tenderness Thoracic spine/upper back: pain with ROM and paraspinal muscle tenderness Lumbar spine/lower back: pain with ROM and paraspinal muscle tenderness Back image (female):  1. Extremity Common normals: normal to inspection, full ROM, normal capillary refill and no joint enlargement Neuro Thompson Coma Scale: document GCS findings Common normals: oriented x3 Sensorium/orientation: awake, alert and oriented to person Psych Common normals: mental status grossly normal Course Vital Signs Vital signs: Vital Signs Temperature 98.0 F 10/12/24 16:35 Pulse Rate 72 10/12/24 16:35 Respiratory Rate 16 10/12/24 16:35 Blood Pressure 131/87 10/12/24 16:35 Pulse Oximetry 99 10/12/24 16:35 Oxygen Delivery Method Room Air 10/12/24 16:35 Temperature 98.0 F 10/12/24 16:35 Pulse Rate 54 L 10/12/24 19:09 Respiratory Rate 16 10/12/24 16:35 Blood Pressure 116/82 10/12/24 19:09 Pulse Oximetry 98 10/12/24 19:09 Oxygen Delivery Method Room Air 10/12/24 16:35 MDM - Back Pain/Injury MDM Narrative Medical decision making narrative: Patient presents to the ED with a complaint of right-sided back pain. She went to the urgent care and was seen told she had blood in her urine and she needed to come in for a CAT scan to make sure she does not have a kidney stone. She states she has had back pain for 2 days she did bend over and felt a pull however none of her home treatments have been sufficient. Pain or shortness of breath no numbness or tingling no lightheadedness or dizzy. Patient is alert and oriented resting comfortably in her bed. She does have palpable tenderness in the right lumbar flank area. Abdomen soft and nontender no rebound or guarding. Patient does not appear grossly uncomfortable. Heart lung sounds are unremarkable. She does not use IV drugs she denies any bowel incontinence urinary retention or urinary incontinence. She is afebrile. Urinalysis does not show any hematuria she does have some small amount of leukocyte over she does have some. She does not have any other urinary symptoms so I will send her for culture. CT does not show any renal stone or abdominal pathology. I discussed this with the patient and I we will give her muscle relaxers and anti-inflammatories. I encouraged her to follow-up with her PCP she return with any worse or concerning symptoms. Patient is agreeable to this plan of care will follow-up as discussed Differential Diagnosis Differential diagnosis: Likely lumbar radiculopathy, sciatica, strain of lumbar region, renal colic, pyelonephritis and thoracic back pain Medical Records Attestation: I reviewed the patient's medical records. Lab Data Attestation: I reviewed the patient's lab results. Labs: Lab Results 10/12/24 Range/Units 16:50 Urine Color Lt. yellow (YELLOW) Urine Clarity Clear (CLEAR) Urine pH 7.0 (5.0-9.0) Ur Specific [place] <=1.005 A (1.005-1.025) Urine Protein Negative (NEG/TRACE) mg/dL Urine Glucose (UA) Negative (NEGATIVE) mg/dL Urine Ketones Negative (NEGATIVE) mg/dL Urine Occult Blood Trace-i (NEGATIVE) Urine Nitrite Negative (NEGATIVE) Urine Bilirubin Negative (NEGATIVE) Urine Urobilinogen 0.2 (0.2-1.0) EU/dL Ur Leukocyte Esterase Small A (NEGATIVE) Urine RBC 0-2 (0-2) #/HPF Urine WBC 2-5 A (NONE SEEN) #/HPF Ur Squamous Epith Cells Rare (NONE/RARE) #/LPF Urine Crystals None seen (None Seen) #/HPF Urine Bacteria Trace A (NONE SEEN) #/HPF Urine Casts None seen (NONE SEEN) #/LPF Urine Mucus None seen (NONE SEEN) Ur Culture Indicated? Yes-[facility] [place] Imaging Data CT scan - abdomen: Radiologist's impression: ITS Impressions Abdomen/Pelvis CT 10/12/24 17:07 IMPRESSION: Negative acute inflammatory process or bowel obstruction. Negative for nephrolithiasis or obstructive uropathy. Impression dictated by: Rd Morales M.D. 10/12/2024 5:26 PM Dictation Location: [place] [id number] Electronically authenticated by: [id number] Y Date: 10/12/2024 17:26 Discharge Plan Discharge Chief Complaint: Back Pain/Injury Clinical Impression: Strain of lumbar region Patient Disposition: Home, Self-Care Time of Disposition Decision: 18:41 Condition: Good Prescriptions / Home Meds: New methocarbamol 500 mg tablet 500 mg PO Q8H PRN (Reason: spasms) Qty: 20 0RF diclofenac sodium 50 mg tablet,delayed release (DR/EC) 50 mg PO BID PRN (Reason: pain) Qty: 20 0RF Print Language: Malagasy Instructions: Low Back Strain (ED) Referrals: Physician,Non-Staff, MD [Primary Care Provider] - 1 week Discharge Date/Time: 10/12/24 19:11
[2024-10-12 19:09] VITALS: BP 116/82; PULSE 54; O2SAT 98
== END 2024-10-12 19:11 | disposition home or self-care (01) ==
PROVIDERS: Physician Assistant; Emergency Provider Emergency Medicine
DX: S39.012A Strain of muscle, fascia and tendon of lower back, initial encounter (principal); X58.XXXA Exposure to other specified factors, initial encounter
CPT/HCPCS: 74176; 81001; 87086; 87088; 87186; 99284